=== PATIENT | female | born 1975 | race Caucasian/White ===

== ENCOUNTER 2017-12-15 01:27 | Emergency (ER) | payer BC ==
[~2017-12-15] VITALS: Ht 154.9 cm; Wt 64.4 kg
[2017-12-15 01:36] VITALS: Ht 154.9 cm; Wt 64.4 kg
[2017-12-15 02:17] LABS: BASOPHIL % 1.1 % (0-2); PLATELET COUNT 267 x10^3mcL (130-400); RED CELL DISTRIBUTION WIDTH 13.7 % (11.5-14.5)
[2017-12-15 02:28] LABS: CALCIUM 8.1 mg/dL (8.5-10.1); CARBON DIOXIDE 23.4 mmol/L (21-32); CHLORIDE SERUM 108 mmol/L (98-107); CREATININE SERUM 0.9 mg/dL (0.6-1.0); GFR1 > 60 mL/min; GLUCOSE SERUM 86 mg/dL (74-106); POTASSIUM SERUM 3.6 mmol/L (3.5-5.1); SODIUM SERUM 145 mmol/L (136-145)
[2017-12-15 02:33] LABS: ALBUMIN 3.6 g/dL (3.4-5.0); ALKALINE PHOSPHATASE 77 U/L (46-116); ALT/SGPT 18 U/L (14-59); AST/SGOT 17 U/L (15-37); LIPASE 276 IU/L (73-393); TOTAL PROTEIN, SERUM 7.4 g/dL (6.4-8.2)
[2017-12-15 03:47] LABS: UA SPECIFIC GRAVITY <=1.005 (1.005-1.035); microscopic required? YES; urine erythrocyte TRACE (NEGATIVE)
[2017-12-15 08:44] VITALS: BP 110/67
== END 2017-12-15 08:44 | disposition home or self-care (01) ==
LOC: ED 01:27
PROVIDERS: Emergency Medicine
DX: F10.129 Alcohol abuse with intoxication, unspecified (principal)
CPT/HCPCS: 82962; G0480; J2405; J3490; J7030

== ENCOUNTER 2018-03-30 23:32 | Inpatient (IN) | payer BC ==
[~2018-03-30] VITALS: Ht 149.9 cm; Wt 59.4 kg
[2018-03-31 00:22] LABS: BASOPHIL % 0.8 % (0-2); PLATELET COUNT 184 x10^3mcL (130-400)
[2018-03-31 00:23] LABS: RED CELL DISTRIBUTION WIDTH 14.7 % (11.5-14.5)
[2018-03-31 00:36] LABS: CALCIUM 8.4 mg/dL (8.5-10.1); CARBON DIOXIDE 20.4 mmol/L (21-32); CHLORIDE SERUM 113 mmol/L (98-107); CREATININE SERUM 0.7 mg/dL (0.6-1.0); GFR1 > 60 mL/min; GLUCOSE SERUM 84 mg/dL (74-106); POTASSIUM SERUM 3.3 mmol/L (3.5-5.1); SODIUM SERUM 149 mmol/L (136-145)
[2018-03-31 00:42] LABS: ALBUMIN 3.8 g/dL (3.4-5.0); ALKALINE PHOSPHATASE 62 U/L (46-116); ALT/SGPT 25 U/L (14-59); AST/SGOT 23 U/L (15-37); BILIRUBIN TOTAL 0.2 mg/dL (0.20-1.00)
[2018-03-31 00:45] LABS: AMYLASE 242 U/L (25-115); LIPASE 1843 IU/L (73-393)
[2018-03-31 03:40] VITALS: BP 105/71
[2018-03-31 04:08] VITALS: BP 105/71
[2018-03-31 04:39] LABS: MAGNESIUM 2.1 mg/dL (1.8-2.4)
[2018-03-31 04:42] LABS: CHOLESTEROL/HDL RATIO 2.1
[2018-03-31 04:47] LABS: T3 TOTAL 0.74 ng/mL
[2018-03-31 05:13] LABS: FREE T4 1.02 ng/dL (0.76-1.46); FREE THYROXINE INDEX 2.6 ug/dL (1.4-4.5); T4(THYROXINE) 7.8 ug/dL (4.7-13.3)
[2018-03-31 09:27] VITALS: Ht 149.9 cm; Wt 59.4 kg
[2018-03-31 10:07] VITALS: BP 97/57
[2018-03-31 12:41] VITALS: BP 97/63
[2018-03-31 15:45] LABS: microscopic required? NO
[2018-03-31 15:57] LABS: UA SPECIFIC GRAVITY 1.015 (1.005-1.035); urine erythrocyte NEGATIVE (NEGATIVE)
[2018-03-31 17:36] VITALS: BP 104/68
[2018-03-31 20:52] VITALS: BP 115/71
[2018-04-01 04:47] VITALS: BP 101/70
[2018-04-01 07:24] LABS: AMYLASE 56 U/L (25-115); BASOPHIL % 1.3 % (0-2); CALCIUM 7.6 mg/dL (8.5-10.1); CARBON DIOXIDE 21.6 mmol/L (21-32); CHLORIDE SERUM 109 mmol/L (98-107); CREATININE SERUM 0.6 mg/dL (0.6-1.0); GFR1 > 60 mL/min; GLUCOSE SERUM 68 mg/dL (74-106); LIPASE 73 IU/L (73-393); PHOSPHOROUS 2.4 mg/dL (2.5-4.9); PLATELET COUNT 154 x10^3mcL (130-400); POTASSIUM SERUM 3.7 mmol/L (3.5-5.1); SODIUM SERUM 139 mmol/L (136-145)
[2018-04-01 08:48] VITALS: BP 103/64
[2018-04-01 13:51] VITALS: BP 117/78
[2018-04-01 16:50] VITALS: BP 110/69
[2018-04-01 21:00] VITALS: BP 95/68
[2018-04-02 05:37] VITALS: BP 106/68
[2018-04-02 06:11] LABS: PLATELET COUNT 157 x10^3mcL (130-400)
[2018-04-02 06:27] LABS: CALCIUM 8.1 mg/dL (8.5-10.1); CARBON DIOXIDE 24.1 mmol/L (21-32); CHLORIDE SERUM 107 mmol/L (98-107); CREATININE SERUM 0.6 mg/dL (0.6-1.0); GFR1 > 60 mL/min; GLUCOSE SERUM 90 mg/dL (74-106); LIPASE 87 IU/L (73-393); MAGNESIUM 1.9 mg/dL (1.8-2.4); PHOSPHOROUS 2.4 mg/dL (2.5-4.9); POTASSIUM SERUM 3.6 mmol/L (3.5-5.1); SODIUM SERUM 138 mmol/L (136-145)
[2018-04-02 09:23] VITALS: BP 105/70
[2018-04-02 11:39] VITALS: BP 105/70
[2018-04-02] MEDS ORDERED: ZOF4 PO (12:41)
[2018-04-02 13:49] VITALS: BP 110/69
== END 2018-04-02 14:25 | disposition home or self-care (01) | DRG 917 ==
LOC: ED 23:32 → DU 03-31 02:59
PROVIDERS: Emergency Medicine; Internal Medicine
DX: T51.91XA Toxic effect of unspecified alcohol, accidental (unintentional), initial encounter (principal); K85.20 Alcohol induced acute pancreatitis without necrosis or infection; G92 Toxic encephalopathy; N17.0 Acute kidney failure with tubular necrosis; E87.6 Hypokalemia; F10.129 Alcohol abuse with intoxication, unspecified; Y92.89 Other specified places as the place of occurrence of the external cause
CPT/HCPCS: 83880; 84439; G0480; J2405; J2765; J7030

== ENCOUNTER 2018-04-02 20:59 | Emergency (ER) | payer BC ==
[~2018-04-02 20:59] MED LIST: ZOF4 PO
== END 2018-04-02 21:52 | disposition left against medical advice (07) ==
LOC: ED 20:59
DX: Z53.21 Procedure and treatment not carried out due to patient leaving prior to being seen by health care provider (principal)